=== PATIENT | male | born 1980 | race Two or more races ===

== ENCOUNTER 2019-04-19 08:46 | Emergency (ER) | payer BC ==
[~2019-04-19] VITALS: Ht 175.3 cm; Wt 62.6 kg
[2019-04-19] MEDS ORDERED: SIMBALTA (09:02)
[2019-04-19] MEDS ORDERED: ULTRAM50 MG PO (09:02)
[2019-04-20] MEDS ORDERED: CYMBALTA60 MG (14:35)
== END 2019-04-19 14:20 | disposition home or self-care (01) ==
LOC: ER 08:46
DX: B34.9 Viral infection, unspecified (principal)

== ENCOUNTER 2019-04-20 14:22 | Inpatient (IN) | payer BC ==
[~2019-04-20] VITALS: Ht 175.3 cm; Wt 62.6 kg
[~2019-04-20 14:22] MED LIST: SIMBALTA; ULTRAM50 MG PO
[2019-04-20] MEDS ORDERED: CYMBALTA60 MG (14:35)
== END 2019-04-23 10:17 | disposition home or self-care (01) | DRG 866 ==
LOC: ER → MEDI 19:50
PROVIDERS: ADMIT Internal Medicine
DX: A90 Dengue fever [classical dengue] (principal); D69.49 Other primary thrombocytopenia; E86.0 Dehydration